=== PATIENT | male | born 1970 | race Asian ===

== ENCOUNTER 2019-10-14 17:28 | Emergency (ER) | payer OTHER ==
[~2019-10-14] VITALS: Ht 157.5 cm; Wt 63.5 kg
[2019-10-14 22:02] VITALS: BP 124/87
[2019-10-14] MEDS ORDERED: TETANUS-DIPTH-ACEL PERTUSSIS 0.5ML SYRG IM ONE (22:15)
== END 2019-10-14 22:25 | disposition home or self-care (01) ==
LOC: ER 17:28
DX: S61.212A Laceration without foreign body of right middle finger without damage to nail, initial encounter (principal); W26.0XXA Contact with knife, initial encounter; Y93.G3 Activity, cooking and baking; Y92.099 Unspecified place in other non-institutional residence as the place of occurrence of the external cause; Y99.8 Other external cause status
CPT/HCPCS: 12001; 90471; 90715